=== PATIENT | male | born 1990 | race Caucasian/White ===

== ENCOUNTER 2021-06-03 18:28 | Emergency (ER) | payer OTHER ==
[2021-06-03 19:38] LABS: HEMOGLOBIN 15.5 gm/dl (14.0-17.5); RED BLOOD COUNT 5.19 M/UL (4.20-5.50); WHITE BLOOD COUNT 10.9 K/UL (4.5-11.0)
[2021-06-03 20:11] LABS: BUN/CREATININE RATIO 10 (0-10)
[2021-06-03] MEDS ORDERED: ZOFRAN4 MG PO (22:40)
== END 2021-06-03 22:45 | disposition home or self-care (01) ==
LOC: ER1 18:28
PROVIDERS: Emergency Medicine
DX: R11.2 Nausea with vomiting, unspecified (principal); R19.7 Diarrhea, unspecified
CPT/HCPCS: 80053; 81001; 83690; 85025; 87086; 96374; 99284; J2405; J7030